=== PATIENT | male | born 1995 | race Caucasian/White ===

== ENCOUNTER → 2023-11-03 | Outpatient (CLI) | payer OTHER ==
--- NOTE | 2023-11-03 11:41 | Diagnostic Imaging Report ---
MRI ANKLE LT WO INDICATION: Left ankle pain COMPARISON: None available. TECHNIQUE: Multiplanar, multisequence MR imaging of the left ankle was performed without contrast. FINDINGS: TENDONS: Achilles is intact. Peroneus longus and brevis are normal. The posterior tibialis, flexor digitorum longus and flexor hallucis longus are normal were seen. The anterior tibialis, extensor hallucis longus and extensor digitorum longus are also normal were seen. LIGAMENTS: The anterior and posterior distal tibiofibular ligaments are intact. The anterior talofibular, calcaneofibular and posterior talofibular ligaments are normal. Medial deltoid ligamentous complex is intact. Spring ligament is normal. Dorsal talonavicular ligament is normal. BONES AND CARTILAGE: No osteochondral lesion of the talar dome. A few scattered foci of T2 hyperintense bone marrow edema present on both sides of the calcaneocuboid joint. No fracture lines are seen. The articular cartilage of the tibiotalar and posterior subtalar joints are normal. SOFT TISSUES: No evidence of plantar fasciitis. No abnormal soft tissue scar/fibrosis within the tarsal canal/sinus tarsi or tarsal tunnel. No ankle joint effusion. IMPRESSION: 1. Mild bone marrow edema on each side the calcaneocuboid joint could be due to stress reaction around the joint. No fracture lines are seen. 2. No tendon or ligament tear. Dictated by: Dictated on workstation # [id number]
== END ==
LOC: RAD 08:24
PROVIDERS: ATTEND Nurse Practitioner
DX: M13.872 Other specified arthritis, left ankle and foot (principal)
CPT/HCPCS: 73725